=== PATIENT | female | born 1980 | race Caucasian/White ===

== ENCOUNTER 2016-09-03 14:23 | Emergency (ER) | payer BC, OTHER ==
[~2016-09-03] VITALS: Ht 172.7 cm; Wt 61.5 kg
[~2016-09-03 14:23] MED LIST: ADDE30TA PO; ALBUAER3 INH; ALPR.25 PO; CIPR250T2 PO; CLIN1CAP6 PO
[2016-09-03 14:25] VITALS: BP 130/71; PULSE 87; RESP 12; TEMP 98.4; O2SAT 97
[2016-09-03] MEDS ORDERED: TRAZ100T4 PO (16:14)
[2016-09-03] MEDS ORDERED: birth control pill (16:14)
--- NOTE | 2016-09-03 16:35 | PD ---
HPI . Substance abuse Chief Complaint: Alcohol/Drug Intoxication Time Seen by Provider: 16:02 Travel History International Travel<30 days: No Contact w/Intl Traveler<30days: No Traveled to known affect area: No History of Present Illness HPI Patient presents requesting detox from heroin. She states that her last use was today. She states that her has left her and she has "lost everything.". She states that she is not homeless "yet." She states that she uses heroin intranasally. She denies IV drug use. 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 Space doses at least 4 to 6 hours if more than once/day dosing. Xanax (Alprazolam) 0.25 Mg Tab 0.25 Mg PO Q6H PRN Review of Systems Except as stated in HPI: all other systems reviewed are Neg General / Constitutional: No: Fever, Chills Skin: No Lesions Psychiatric: Positive: Depression, Mood Disorder, Substance Abuse Physical Exam Narrative GENERAL: This is a thin, tearful woman SKIN: Warm and dry. HEAD: Atraumatic. Normocephalic. EYES: Pupils equal and round. ENT: No nasal bleeding or discharge. Mucous membranes pink and moist. NECK: Trachea midline. CARDIOVASCULAR: Regular rate and rhythm. RESPIRATORY: No accessory muscle use. GASTROINTESTINAL: Abdomen soft, non-tender, nondistended. MUSCULOSKELETAL: No obvious deformities. No edema. NEUROLOGICAL: Awake and alert. No obvious cranial nerve deficits. Motor grossly within normal limits. Normal speech. PSYCHIATRIC: Appropriate mood and affect; insight and judgment normal. Data Data Last Documented VS Vital Signs Date Time Temp Pulse Resp B/P Pulse Ox O2 Delivery O2 Flow Rate FiO2 09/03/16 14:25 98.4 87 12 130/71 97 Nasal Cannula Orders Complete Blood Count With Diff (09/03/16 16:03) Basic Metabolic Panel (Bmp) (09/03/16 16:03) Drug Screen, Random Urine (09/03/16 16:03) Alcohol (Ethanol) (09/03/16 16:03) Psych Screen (09/03/16 16:03) Diet Regular Basic (09/03/16 Dinner) Labs Laboratory Tests Test 09/03/16 09/03/16 16:20 16:22 White Blood Count 10.0 TH/MM3 Red Blood Count 4.72 MIL/MM3 Hemoglobin 14.9 GM/DL Hematocrit 41.6 % Mean Corpuscular Volume 88.0 FL Mean Corpuscular Hemoglobin 31.5 PG Mean Corpuscular Hemoglobin 35.8 % Concent Red Cell Distribution Width 12.8 % Platelet Count 188 TH/MM3 Mean Platelet Volume 7.6 FL Neutrophils (%) (Auto) 76.0 % Lymphocytes (%) (Auto) 15.9 % Monocytes (%) (Auto) 7.2 % Eosinophils (%) (Auto) 0.2 % Basophils (%) (Auto) 0.7 % Neutrophils # (Auto) 7.6 TH/MM3 Lymphocytes # (Auto) 1.6 TH/MM3 Monocytes # (Auto) 0.7 TH/MM3 Eosinophils # (Auto) 0.0 TH/MM3 Basophils # (Auto) 0.1 TH/MM3 CBC Comment DIFF FINAL Differential Comment Sodium Level 139 MEQ/L Potassium Level 3.7 MEQ/L Chloride Level 104 MEQ/L Carbon Dioxide Level 28.2 MEQ/L Anion Gap 7 MEQ/L Blood Urea Nitrogen 9 MG/DL Creatinine 0.87 MG/DL Estimat Glomerular Filtration 75 ML/MIN Rate Random Glucose 104 MG/DL Calcium Level 8.9 MG/DL Ethyl Alcohol Level LESS THAN 3 MG/DL Urine Opiates Screen POS Urine Barbiturates Screen NEG Urine Amphetamines Screen POS Urine Benzodiazepines Screen NEG Urine Cocaine Screen NEG Urine Cannabinoids Screen POS MDM Medical Decision Making Medical Screen Exam Complete: Yes Emergency Medical Condition: Yes Differential Diagnosis Differential diagnosis includes but is not limited to polysubstance abuse, suicidal ideation, manipulative behavior Narrative Course Patient presents requesting detox from heroin. Medical clearance examination followed by psychiatry consultation. CBC is normal. Chemistries are normal with the exception of a decreased GFR of 75. Tox screen is positive for opiates, amphetamines and THC. Alcohol level is negative. The patient has eaten and is in no distress. She is medically clear for psychiatric consultation. Diagnosis Primary Impression: Substance abuse Condition: Stable Mariah Matt MD Sep 03, 2016 16:35
[2016-09-03 16:46] LABS: AUTOMATED NEUTROPHIL # 7.6 TH/MM3 (1.8-7.7); BASOPHIL # 0.1 TH/MM3 (0-0.2); BASOPHIL % 0.7 % (0.0-2.0); EOSINOPHIL % 0.2 % (0.0-4.0); HEMATOCRIT 41.6 % (35.0-46.0); HEMO FLAGS DIFF FINAL; LYMPH % 15.9 % (9.0-44.0); LYMPHOCYTE # 1.6 TH/MM3 (1.0-4.8); MEAN CORPUSCULAR HEMOGLOBIN 31.5 PG (27.0-34.0); MEAN CORPUSCULAR HGB CONC 35.8 % (32.0-36.0); MONO % 7.2 % (0.0-8.0); PLATELET COUNT 188 TH/MM3 (150-450); RED BLOOD COUNT 4.72 MIL/MM3 (4.00-5.30); RED CELL DISTRIBUTION WIDTH 12.8 % (11.6-17.2)
[2016-09-03 16:58] LABS: ANION GAP 7 MEQ/L (5-15); BICARBONATE 28.2 MEQ/L (21.0-32.0); BLOOD UREA NITROGEN 9 MG/DL (7-18); CHLORIDE 104 MEQ/L (98-107); GLOMERULAR FILTRATION RATE 75 ML/MIN (>89); POTASSIUM 3.7 MEQ/L (3.5-5.1); SODIUM (NA) 139 MEQ/L (136-145)
[2016-09-03 17:11] LABS: AMPHETAMINE, URINE POS (NEG); BARBITURATES, URINE NEG (NEG); COCAINE, URINE NEG (NEG)
[2016-09-03 19:56] VITALS: BP 108/56; PULSE 79; RESP 12; O2SAT 96
[2016-09-04 01:01] VITALS: BP 96/57; PULSE 67; RESP 12; O2SAT 98
[2016-09-04 08:30] VITALS: BP 133/61; PULSE 77; RESP 20; O2SAT 98
[2016-09-04] MEDS ORDERED: LORazepam 2 MG TAB PO ONE (10:00)
== END 2016-09-04 10:41 ==
LOC: NEPA 14:23
DX: Z02.89 Encounter for other administrative examinations (principal); F19.10 Other psychoactive substance abuse, uncomplicated; F17.200 Nicotine dependence, unspecified, uncomplicated; Z86.59 Personal history of other mental and behavioral disorders
CPT/HCPCS: 80048; 80307; 80320; 85025; 99284

== ENCOUNTER 2016-12-23 14:04 | Emergency (ER) | payer BC ==
[~2016-12-23] VITALS: Ht 172.7 cm; Wt 65.0 kg
[~2016-12-23 14:04] MED LIST changes: -CIPR250T2 PO; -CLIN1CAP6 PO; +TRAZ100T4 PO; +birth control pill
[2016-12-23 14:06] VITALS: BP 162/98; PULSE 106; RESP 24; TEMP 99.5; O2SAT 98
--- NOTE | 2016-12-23 14:16 | PD ---
HPI Chief Complaint: Respiratory Symptoms Time Seen by Provider: 14:16 Travel History International Travel<30 days: No Contact w/Intl Traveler<30days: No Traveled to known affect area: No History of Present Illness HPI 36-year-old female came to the emergency room with history of cough for past 3 days. The cough is progressively worsening. Patient says it hurts her chest every time she is coughing. She has not been eating or drinking much because of the sickness. I did not get a proper history regarding fever or chills at home. Patient was afebrile in the emergency room. She appears to be in distress. Patient is a smoker. PFSH Past Medical History Narrative Medical List of her past medical, surgical, social and family history is reviewed from the nursing note. Hx Anticoagulant Therapy: No ADD: Yes Anxiety: Yes Cardiovascular Problems: No Chemotherapy: No Cerebrovascular Accident: No Diabetes: No Diminished Hearing: No Respiratory: No ?: Not Past Surgical History Hysterectomy: No Social History Alcohol Use: No Tobacco Use: Yes (1ppd) Substance Use: No (heroin) Allergies-Medications (Allergen,Severity, Reaction): Coded Allergies: Bactrim (Verified Allergy, Severe, Rash, 12/23/16) *MDRO Multi-Drug Resistant Organism (Verified Adverse Reaction, Unknown, ) MRSA Leg Wound 04/2016 Comments List of her allergies reviewed from the nursing note. Reported Meds & Prescriptions Reported Meds & Active Scripts Active Levaquin (Levofloxacin) 500 Mg Tab 500 Mg PO DAILY 10 Days Proair Hfa 8.5 GM Inh (Albuterol Sulfate) 90 Mcg/Act Aer 2 Puff INH Q4-6H PRN 108 mcg/actuation Reported Xanax (Alprazolam) 0.5 Mg Tab 0.5 Mg PO Q6H PRN Trazodone (Trazodone HCl) 100 Mg Tab 100 Mg PO HS [ control pill] DAILY Adderall (Amphetamine-Dextroamphetamine) 30 Mg Tab 30 Mg PO BID Avoid late evening doses. Space doses at least 4 to 6 hours if more than once/day dosing. Narrative Medication List of her home medications reviewed from the nursing note. Review of Systems Except as stated in HPI: all other systems reviewed are Neg Physical Exam Narrative GENERAL: Awake, alert, moderate distress SKIN: Focused skin assessment warm/dry. HEAD: Atraumatic. Normocephalic. EYES: Pupils equal and round. No scleral icterus. No injection or drainage. ENT: No nasal bleeding or discharge. Mucous membranes dry and coated tongue NECK: Trachea midline. No JVD. CARDIOVASCULAR: Regular rate and rhythm. No murmur appreciated. RESPIRATORY: No accessory muscle use. Coarse crackles on the left lung base GASTROINTESTINAL: Abdomen soft, non-tender, nondistended. Hepatic and splenic margins not palpable. MUSCULOSKELETAL: No obvious deformities. No clubbing. No cyanosis. No edema. NEUROLOGICAL: Awake and alert. No obvious cranial nerve deficits. Motor grossly within normal limits. Normal speech. PSYCHIATRIC: Appropriate mood and affect; insight and judgment normal. Data Data Last Documented VS Vital Signs Date Time Temp Pulse Resp B/P Pulse Ox O2 Delivery O2 Flow Rate FiO2 12/23/16 16:11 110 18 95/55 93 12/23/16 15:01 Nasal Cannula 2 12/23/16 14:06 99.5 Orders Complete Blood Count With Diff (12/23/16 14:28) Basic Metabolic Panel (Bmp) (12/23/16 14:28) Influenzae A/B Antigen (12/23/16 14:28) Blood Culture (12/23/16 14:28) Iv Access Insert/Monitor (12/23/16 14:28) Ecg Monitoring (12/23/16 14:28) Oximetry (12/23/16 14:28) Oxygen Administration (12/23/16 14:28) Chest, Single Ap (12/23/16 14:28) Sodium Chloride 0.9% Flush (Ns Flush) (12/23/16 14:30) Albuterol-Ipratropium Neb (Duoneb Neb) (12/23/16 14:30) Levofloxacin 500 Mg Premix Inj (Levaquin (12/23/16 15:15) Labs Laboratory Tests Test 12/23/16 14:50 White Blood Count 7.4 TH/MM3 Red Blood Count 4.84 MIL/MM3 Hemoglobin 14.3 GM/DL Hematocrit 42.2 % Mean Corpuscular Volume 87.2 FL Mean Corpuscular Hemoglobin 29.6 PG Mean Corpuscular Hemoglobin 33.9 % Concent Red Cell Distribution Width 13.6 % Platelet Count 246 TH/MM3 Mean Platelet Volume 7.0 FL Neutrophils (%) (Auto) 84.2 % Lymphocytes (%) (Auto) 8.9 % Monocytes (%) (Auto) 6.5 % Eosinophils (%) (Auto) 0.1 % Basophils (%) (Auto) 0.3 % Neutrophils # (Auto) 6.2 TH/MM3 Lymphocytes # (Auto) 0.7 TH/MM3 Monocytes # (Auto) 0.5 TH/MM3 Eosinophils # (Auto) 0.0 TH/MM3 Basophils # (Auto) 0.0 TH/MM3 CBC Comment DIFF FINAL Differential Comment Sodium Level 130 MEQ/L Potassium Level 3.8 MEQ/L Chloride Level 95 MEQ/L Carbon Dioxide Level 25.8 MEQ/L Anion Gap 9 MEQ/L Blood Urea Nitrogen 8 MG/DL Creatinine 0.88 MG/DL Estimat Glomerular Filtration 74 ML/MIN Rate Random Glucose 157 MG/DL Calcium Level 9.0 MG/DL MDM Medical Decision Making Medical Screen Exam Complete: Yes Emergency Medical Condition: Yes Medical Record Reviewed: Yes Differential Diagnosis Bronchitis, pneumonia, viral infection Narrative Course 3:32 PM blood test results are back. Patient has some left shift of her heart blood cell count. She has mild hyponatremia. Patient is getting 1 L of IV fluid bolus and albuterol nebulizer. Chest x-ray was suggestive of lingular infiltrate. I have ordered a dose of IV Levaquin. I will be able to discharge her home on prescription. She would be heavily recommended on smoking cessation. Procedures EKG Prior to Arrival: No Diagnosis Primary Impression: Pneumonia Qualified Code: J18.1 - Pneumonia of left lower lobe due to infectious organism Additional Impressions: Dehydration Needs smoking cessation education Referrals: Primary Care Physician 2 days Additional Instructions: Please return to the ER if the condition worsens or any other new concerns. Take the medication as per the prescription direction without missing any dose. With your primary care in couple days. He should take 2 puffs of inhaler every 4-6 hours until symptoms subside. He should quit smoking in order to feel better. Med/Other Pt SpecificInfo: Prescription(s) given Scripts Levofloxacin (Levaquin)500 Mg [id number] Mg PO DAILY 10 Days Ref 0 Prov:Clayton Carpio MD 12/23/16 Disposition: 01 DISCHARGE HOME Condition: Stable Clayton Carpio MD December 23, 2016 14:16
[2016-12-23] MEDS ORDERED: ALPR.5 PO (14:24)
[2016-12-23] MEDS ORDERED: SODIUM CHLORIDE 0.9% FLUSH 10 ML FLUSH IVF PRN (14:30)
[2016-12-23 15:01] VITALS: O2SAT 93
[2016-12-23] MEDS: RESP: ALBUTEROL 2.5 MG/IPRATROPIUM 0.5 MG NEB (SCH) INH ×2 (15:13→15:16)
[2016-12-23 15:15] LABS: AUTOMATED NEUTROPHIL # 6.2 TH/MM3 (1.8-7.7); BASOPHIL % 0.3 % (0.0-2.0); EOSINOPHIL % 0.1 % (0.0-4.0); HEMATOCRIT 42.2 % (35.0-46.0); HEMO FLAGS DIFF FINAL; LYMPH % 8.9 % (9.0-44.0); LYMPHOCYTE # 0.7 TH/MM3 (1.0-4.8); MEAN CELL VOLUME 87.2 FL (80.0-100.0); MEAN CORPUSCULAR HEMOGLOBIN 29.6 PG (27.0-34.0); MEAN CORPUSCULAR HGB CONC 33.9 % (32.0-36.0); MONO % 6.5 % (0.0-8.0); NEUT % 84.2 % (16.0-70.0); PLATELET COUNT 246 TH/MM3 (150-450); RED BLOOD COUNT 4.84 MIL/MM3 (4.00-5.30); RED CELL DISTRIBUTION WIDTH 13.6 % (11.6-17.2); WHITE BLOOD COUNT 7.4 TH/MM3 (4.0-11.0)
[2016-12-23] MEDS ORDERED: LEVOFLOXACIN 500 MG PREMIX INJ 100 ML IV ONE (15:15)
[2016-12-23 15:28] LABS: BICARBONATE 25.8 MEQ/L (21.0-32.0); POTASSIUM 3.8 MEQ/L (3.5-5.1)
[2016-12-23] MEDS ORDERED: LEVA500T PO (15:34)
--- NOTE | 2016-12-23 15:46 | RADRPT ---
EXAM DATE/TIME: 12/23/2016 14:37 [facility] COMPARISON: CHEST SINGLE AP, June 28, 2016, 13:32. ABDOMEN KUB ONLY, June 28, 2016, 13:35. INDICATIONS : Short of breath, cough, cold symptoms. MEDICAL HISTORY : None. SURGICAL HISTORY : None. ENCOUNTER: Initial ACUITY: 4 - 6 days PAIN SCORE: 0/10 LOCATION: Bilateral chest FINDINGS: The exam demonstrates a focal area of consolidation at the left lung base. This is new compared to pr evious dated 06/28/16 and would be most consistent with a pneumonia. Followup to ensure resolution wo uld be warranted. The visualized bony structures are intact. CONCLUSION: 1. Left basilar pneumonia. New when compared to previous. Robert Burch MD on December 23, 2016 at 15:44 Board Certified Radiologist. This report was verified electronically.
[2016-12-23 16:11] VITALS: BP 95/55
== END 2016-12-23 16:18 | disposition home or self-care (01) ==
LOC: NEPD 14:04
DX: J18.9 Pneumonia, unspecified organism (principal); E86.0 Dehydration; F17.210 Nicotine dependence, cigarettes, uncomplicated; B96.89 Other specified bacterial agents as the cause of diseases classified elsewhere
CPT/HCPCS: 71010; 80048; 85025; 87040; 87205; 87804; 94640; 94664; 96365; 99283; J1956

== ENCOUNTER 2017-02-08 18:12 | Emergency (ER) | payer SELFPAY ==
[~2017-02-08] VITALS: Ht 172.7 cm; Wt 55.0 kg
[~2017-02-08 18:12] MED LIST changes: -ALPR.25 PO; +ALPR.5 PO; +LEVA500T PO
[2017-02-08 18:16] VITALS: BP 91/52; PULSE 101; RESP 20; TEMP 98.2; O2SAT 98
[2017-02-08] MEDS ORDERED: TRAZ100T6 PO (18:25)
[2017-02-08] MEDS ORDERED: SODIUM CHLOR 0.9% 1000 ML INJ 1,000 ML IV ONE (18:30)
--- NOTE | 2017-02-08 18:33 | PD ---
HPI Chief Complaint: Alcohol/Drug Intoxication Time Seen by Provider: 18:30 Travel History International Travel<30 days: No Contact w/Intl Traveler<30days: No Traveled to known affect area: No History of Present Illness HPI 36-year-old female presents to the emergency department via EMS after she is on unresponsive at a bus stop. Patient apparently woke up to sternal rub. No intervention was needed. The patient states that she was taking a nap. She states that she uses IV heroin, but has not used today. The patient denies any fevers or chills. No headache. No chest pressure is breath. No abdominal pain. No nausea, vomiting, diarrhea. Patient reports that she takes lorazepam , Adderall, trazodone at home. She denies any thoughts of hurting herself or anybody else. She denies any alcohol use today, states she drank alcohol yesterday. 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 Space doses at least 4 to 6 hours if more than once/day dosing. Review of Systems Except as stated in HPI: all other systems reviewed are Neg Physical Exam Narrative GENERAL: Well-nourished, well-developed female patient, afebrile. SKIN: Focused skin assessment warm/dry. HEAD: Normocephalic. Atraumatic. EYES: No scleral icterus. No injection or drainage. NECK: Supple, trachea midline. No JVD or lymphadenopathy. CARDIOVASCULAR: Regular rate and rhythm without murmurs, gallops, or rubs. RESPIRATORY: Breath sounds equal bilaterally. No accessory muscle use. Lungs sounds are clear to auscultation. GASTROINTESTINAL: Abdomen soft, non-tender, nondistended. MUSCULOSKELETAL: No cyanosis, or edema. BACK: Nontender without obvious deformity. No CVA tenderness. PSYCHIATRIC: No delusional thought processes. No hallucinations. Data Data Last Documented VS Vital Signs Date Time Temp Pulse Resp B/P Pulse Ox O2 Delivery O2 Flow Rate FiO2 02/08/17 20:38 73 18 94/59 97 Room Air 02/08/17 18:16 98.2 Orders Iv Access Insert/Monitor (02/08/17 18:28) Complete Blood Count With Diff (02/08/17 18:28) Basic Metabolic Panel (Bmp) (02/08/17 18:28) Alcohol (Ethanol) (02/08/17 18:28) Drug Screen, Random Urine (02/08/17 18:28) Urinalysis - C+S If Indicated (02/08/17 18:28) Sodium Chlor 0.9% 1000 Ml Inj (Ns 1000 M (02/08/17 18:30) Diet Regular Basic (02/08/17 Dinner) Ed Urine Pregnancytest Poc (02/08/17 18:33) Cath For Specimen (02/08/17 20:33) Naloxone Inj (Narcan Inj) (02/08/17 20:45) Urine Culture (02/08/17 20:40) Ceftriaxone Inj (Rocephin Inj) (02/08/17 21:30) Potassium Chloride (Kcl) (02/08/17 21:45) Labs Laboratory Tests Test 02/08/17 02/08/17 18:30 20:40 White Blood Count 11.4 TH/MM3 Red Blood Count 4.23 MIL/MM3 Hemoglobin 12.4 GM/DL Hematocrit 35.9 % Mean Corpuscular Volume 84.8 FL Mean Corpuscular Hemoglobin 29.3 PG Mean Corpuscular Hemoglobin 34.6 % Concent Red Cell Distribution Width 14.8 % Platelet Count 269 TH/MM3 Mean Platelet Volume 7.0 FL Neutrophils (%) (Auto) 71.8 % Lymphocytes (%) (Auto) 16.7 % Monocytes (%) (Auto) 9.8 % Eosinophils (%) (Auto) 1.3 % Basophils (%) (Auto) 0.4 % Neutrophils # (Auto) 8.2 TH/MM3 Lymphocytes # (Auto) 1.9 TH/MM3 Monocytes # (Auto) 1.1 TH/MM3 Eosinophils # (Auto) 0.1 TH/MM3 Basophils # (Auto) 0.0 TH/MM3 CBC Comment DIFF FINAL Differential Comment Sodium Level 135 MEQ/L Potassium Level 3.1 MEQ/L Chloride Level 98 MEQ/L Carbon Dioxide Level 30.0 MEQ/L Anion Gap 7 MEQ/L Blood Urea Nitrogen 8 MG/DL Creatinine 0.65 MG/DL Estimat Glomerular Filtration 104 ML/MIN Rate Random Glucose 93 MG/DL Calcium Level 8.9 MG/DL Ethyl Alcohol Level LESS THAN 3 MG/DL Urine Color YELLOW Urine Turbidity HAZY Urine pH 6.0 Urine Specific Hurricane 1.012 Urine Protein TRACE mg/dL Urine Glucose (UA) NEG mg/dL Urine Ketones NEG mg/dL Urine Occult Blood MOD Urine Nitrite NEG Urine Bilirubin NEG Urine Urobilinogen LESS THAN 2.0 MG/DL Urine Leukocyte Esterase MOD Urine RBC 2 /hpf Urine WBC 18 /hpf Urine Squamous Epithelial <1 /hpf Cells Urine Bacteria MANY /hpf Urine Mucus FEW /lpf Microscopic Urinalysis Comment CULTURE INDICATED Urine Opiates Screen NEG Urine Barbiturates Screen NEG Urine Amphetamines Screen POS Urine Benzodiazepines Screen POS Urine Cocaine Screen NEG Urine Cannabinoids Screen NEG MDM Medical Decision Making Medical Screen Exam Complete: Yes Emergency Medical Condition: Yes Medical Record Reviewed: Yes Differential Diagnosis Medical clearance versus electrolyte abnormality versus dehydration versus substance abuse Narrative Course 36-year-old female presents to the emergency department if she was found unresponsive at a bus stop. Apparently she woke up to sternal rub according to EMS. She has no complaints at this time. She is slightly hypotensive, 91/52. CBC, BMP, alcohol level, urine drug screen, UA are ordered and pending. Patient is given normal saline 1 L IV bolus. CBC shows slight leukocytosis of 11.4. BMP shows hypokalemia at 3.1. Alcohol level is less than 3. UA shows 18 WBC, many bacteria. UPT is negative. UDS is positive for amphetamines and benzodiazepines. 2034 - the patient is difficult to awake. She awakens briefly with sternal rub. Patient is given Narcan 0.4 mg IV. Patient had no response with Narcan. She'll be allowed to sleep in the emergency department until she is awake and alert. She will be monitored closely. Patient is given Rocephin 1 g IV for UTI and potassium 40 meq for hypokalemia. Patient will be discharged prescription for Macrobid. Diagnosis Primary Impression: Urinary tract infection Qualified Code: N30.00 - Acute cystitis without hematuria Additional Impression: Hypokalemia Referrals: Primary Care Physician call for appointment Patient Instructions: General Instructions, Urinary Tract Infection in Women ( ED) Additional Instructions: Take antibiotic as directed until gone. Follow up with your primary care physician. Return to the emergency department for any acute, worsening of symptoms. Med/Other Pt SpecificInfo: Prescription(s) given Scripts Nitrofurantoin Monohydrate Macrocrystals (Macrobid)100 Mg [id number] Mg PO BID 7 Days Ref 0 Prov:Hailey Prakash 02/08/17 Disposition: 01 DISCHARGE HOME Condition: Stable Hailey Prakash Feb 08, 2017 18:33
[2017-02-08 19:26] LABS: AUTOMATED NEUTROPHIL # 8.2 TH/MM3 (1.8-7.7); BASOPHIL % 0.4 % (0.0-2.0); EOSINOPHIL # 0.1 TH/MM3 (0-0.4); EOSINOPHIL % 1.3 % (0.0-4.0); HEMATOCRIT 35.9 % (35.0-46.0); HEMO FLAGS DIFF FINAL; LYMPH % 16.7 % (9.0-44.0); LYMPHOCYTE # 1.9 TH/MM3 (1.0-4.8); MEAN CELL VOLUME 84.8 FL (80.0-100.0); MEAN CORPUSCULAR HEMOGLOBIN 29.3 PG (27.0-34.0); MEAN CORPUSCULAR HGB CONC 34.6 % (32.0-36.0); MONO % 9.8 % (0.0-8.0); NEUT % 71.8 % (16.0-70.0); PLATELET COUNT 269 TH/MM3 (150-450); RED BLOOD COUNT 4.23 MIL/MM3 (4.00-5.30); RED CELL DISTRIBUTION WIDTH 14.8 % (11.6-17.2); WHITE BLOOD COUNT 11.4 TH/MM3 (4.0-11.0)
[2017-02-08 19:59] LABS: BLOOD UREA NITROGEN 8 MG/DL (7-18); GLOMERULAR FILTRATION RATE 104 ML/MIN (>89)
[2017-02-08 20:25] LABS: ANION GAP 7 MEQ/L (5-15); CHLORIDE 98 MEQ/L (98-107); POTASSIUM 3.1 MEQ/L (3.5-5.1); SODIUM (NA) 135 MEQ/L (136-145)
[2017-02-08 20:38] VITALS: BP 94/59; PULSE 73; RESP 18; O2SAT 97
[2017-02-08] MEDS ORDERED: NALOXONE HCL 0.4 MG/ML AMP IV PUSH ONE (20:45)
[2017-02-08 21:14] LABS: BACTERIA, URINE MANY /hpf; BLOOD, URINE MOD (NEG); COMMENT (UR) CULTURE INDICATED; CULTURE IF INDICATED CULTURE INDICATED; GLUCOSE,URINE NEG (NEG); KETONE, URINE NEG (NEG); MUCUS URINE FEW /lpf (OCC); NITRITE,URINE NEG (NEG); SQUAMOUS EPITHELIAL CELL URINE <1 /hpf (0-5); URINE COLOR YELLOW (YELLW/STRAW)
[2017-02-08 21:15] LABS: AMPHETAMINE, URINE POS (NEG); BARBITURATES, URINE NEG (NEG); COCAINE, URINE NEG (NEG)
[2017-02-08] MEDS ORDERED: cefTRIAXone INJ 1,000 MG in SODIUM CHLORIDE 0.9% INJ 100 ML IV ONE (21:30)
[2017-02-08] MEDS ORDERED: MACR100C2 PO (21:35)
[2017-02-08] MEDS ORDERED: POTASSIUM CHLORIDE 20 MEQ CONTROLLED RELEASE TAB PO ONE (21:45)
== END 2017-02-09 00:32 | disposition home or self-care (01) ==
LOC: NEPE 18:12
DX: N30.00 Acute cystitis without hematuria (principal); E87.6 Hypokalemia; I95.9 Hypotension, unspecified; D72.829 Elevated white blood cell count, unspecified; B96.20 Unspecified Escherichia coli [E. coli] as the cause of diseases classified elsewhere; Z72.0 Tobacco use; Z79.899 Other long term (current) drug therapy; Z86.59 Personal history of other mental and behavioral disorders
CPT/HCPCS: 80048; 80307; 81001; 84703; 85025; 87077; 87086; 87186; 96361; 96365; 96375; 99284; J0696; J2310; J7030; P9612